=== PATIENT | female | born 1975 | race Two or more races ===

== ENCOUNTER → 2016-11-09 | Outpatient (CLI) | payer OTHER ==
[~2016-11-09] MED LIST: None at this Time
[2016-11-09 08:49] LABS: HEMATOCRIT 42.6 % (34.6-47.8); HEMOGLOBIN 14.2 g/dL (11.7-16.4); WHITE BLOOD COUNT 5.3 x10^3/uL (3.4-10)
[2016-11-09 08:52] LABS: HCG UR OBC PASS
== END | disposition home or self-care (01) ==
LOC: STAR 07:33
PROVIDERS: ATTEND Obstetrics & Gynecology
DX: N92.0 Excessive and frequent menstruation with regular cycle (principal)
CPT/HCPCS: 36415; 81003; 81025; 85025

== ENCOUNTER 2016-11-22 08:24 | Day surgery (SDC) | payer OTHER ==
[~2016-11-22] VITALS: Ht 165.1 cm; Wt 67.1 kg
[2016-11-22 08:56] LABS: HCG UR OBC PASS
[2016-11-22 09:07] VITALS: BP 107/71
[2016-11-22] MEDS: LACTATED RINGERS 1,000 ML IV SCH ×2 (09:07→11:45)
[2016-11-22] MEDS ORDERED: FENTANYL PF 100 MCG/2ML ONE ×3 (09:27→11:00)
[2016-11-22] MEDS ORDERED: MIDAZOLAM 1 MG/ML, 2ML ONE (09:28)
[2016-11-22] MEDS ORDERED: ONDANSETRON 2MG/ML, 2ML IVPush PRN (10:00)
[2016-11-22] MEDS ORDERED: PROMETHAZINE 25 MG/ML, 1ML IV PRN (10:00)
[2016-11-22] MEDS ORDERED: HYDROmorphone 1 MG/ML, 1ML IV PRN (10:00)
[2016-11-22] MEDS ORDERED: MEPERIDINE/PF 25MG/0.5ML IVPush PRN (10:00)
[2016-11-22] MEDS ORDERED: ACETAMINOPHEN 325 MG TABLET PO PRN (10:00)
[2016-11-22] MEDS ORDERED: OXYcodone 5 MG/5 ML ORAL.SOL UDC PO PRN (10:00)
[2016-11-22] MEDS ORDERED: BUPIVACAINE/PF-EPI 0.25% 1:200K ONE (10:04)
[2016-11-22] MEDS ORDERED: SILVER NITRATE STICK TP ONE (10:05)
[2016-11-22] MEDS ORDERED: DEXAMETHASONE 4 MG/ML, 1ML ONE (10:08)
[2016-11-22] MEDS ORDERED: ONDANSETRON 2MG/ML, 2ML ONE (10:08)
[2016-11-22] MEDS ORDERED: PROPOFOL 10 MG/ML, 20ML ONE (10:08)
[2016-11-22] MEDS ORDERED: KETOROLAC 30 MG/1 ML ONE (10:08)
[2016-11-22] MEDS ORDERED: CEFAZOLIN 1,000 MG ONE (10:08)
[2016-11-22] MEDS ORDERED: OXYcodone 5 MG/5 ML ORAL.SOL UDC ONE (11:00)
[2016-11-22] MEDS: FENTANYL PF 100 MCG/2ML IV PRN ×2 (11:00→11:09)
[2016-11-22] MEDS ORDERED: ACETAMINOPHEN 650 MG/20.3 ML UDC ONE (11:00)
== END 2016-11-22 13:30 | disposition home or self-care (01) ==
LOC: OUT 08:24
PROVIDERS: ATTEND Obstetrics & Gynecology
DX: N84.0 Polyp of corpus uteri (principal); Z98.890 Other specified postprocedural states
CPT/HCPCS: 58563; 81025; 88305; J0690; J1100; J1885; J2250; J2405; J2704; J3010; J7120